=== PATIENT | female | born 1960 | race Caucasian/White ===

== ENCOUNTER 2018-03-29 14:55 | Emergency (ER) | payer MEDICAID ==
[~2018-03-29] VITALS: Ht 149.9 cm; Wt 59.4 kg
[2018-03-29 15:14] VITALS: BP 116/74
--- NOTE | 2018-03-29 16:14 | NUR ---
PT AMBULATES TO BED 1
--- NOTE | 2018-03-29 16:24 | NUR ---
PT PRESENTS TO THE ED WITH C/O LEFT ARM SWELLING AND REDNESS. PER PATIENT SHE RECEIVED VACCINATIONS 2 DAYS AGO IN [place]. PT UNABLE TO RECALL WHAT VACCINATIONS SHE RECEIVED. ERYTHEMA AND SWELLING NOTED ON THE LEFT ARM. NO DRAINANGE NOTED. PT REPORTS 2/10 PAIN. PT ALSO REPORTS PAIN ON HER LEFT BREAST. HX HYPOTHYROIDISMS, OSTEOPOROSIS, EPILEPSY
--- NOTE | 2018-03-29 17:01 | NUR ---
PATIENT EVALUATED BY DR PAGAN
[2018-03-29 17:43] VITALS: BP 116/73
--- NOTE | 2018-03-29 17:44 | NUR ---
Patient discharged with v/s stable. Written and verbal after care instructions given and explained. Patient alert, oriented and verbalized understanding of instructions. Ambulatory with steady gait. All questions addressed prior to discharge. ID band removed. Patient advised to follow up with PMD. Rx of BENADRYL given. Patient educated on indication of medication including possible reaction and side effects. Opportunity to ask questions provided and answered.
== END 2018-03-29 17:44 | disposition home or self-care (01) ==
LOC: MED 14:55
DX: T78.40XA Allergy, unspecified, initial encounter (principal); E03.9 Hypothyroidism, unspecified; X58.XXXA Exposure to other specified factors, initial encounter; Y93.89 Activity, other specified; Y92.89 Other specified places as the place of occurrence of the external cause; Y99.8 Other external cause status
CPT/HCPCS: 99283; Q0163

== ENCOUNTER 2021-07-17 17:44 | Emergency (ER) | payer OTHER, MEDICAID ==
[~2021-07-17] VITALS: Ht 146.1 cm; Wt 64.5 kg
[2021-07-17 17:52] VITALS: BP 120/76
--- NOTE | 2021-07-17 17:57 | NUR ---
PT AMB TO BED 9.
[2021-07-17] MEDS ORDERED: KETOROLAC 30 MG/ML VIAL IM ONE (18:10)
[2021-07-17 18:27] LABS: BASOPHILS # (AUTO) 0.1 K/uL (0.00-0.22); BASOPHILS % (AUTO) 0.9 % (0.0-2.0); EOSINOPHILS # (AUTO) 0.1 K/uL (0-0.4); EOSINOPHILS % (AUTO) 1.5 % (0.0-4.0); HEMATOCRIT 40.2 % (36-48); HEMOGLOBIN 13.5 g/dL (12.0-16.0); LYMPHOCYTES # (AUTO) 1.9 K/uL (2.5-16.5); LYMPHOCYTES % (AUTO) 34.6 % (20.5-51.1); MEAN CORPUSCULAR HEMOGLOBIN 32 pg (27-31); MEAN CORPUSCULAR HGB CONC 34 g/dL (33-37); MEAN CORPUSCULAR VOLUME 94.8 fL (80-94); MONOCYTES # (AUTO) 0.6 K/uL (0.8-1.0); MONOCYTES % (AUTO) 9.8 % (1.7-9.3); NEUTROPHILS % (AUTO) 53.2 % (42.2-75.2); PLATELET COUNT (AUTO) 272 K/uL (140-450); RED BLOOD CELL COUNT(AUTO) 4.24 MIL/uL (4.20-5.40); RED CELL DISTRIBUTION WIDTH 14.1 % (11.6-13.7); WHITE BLOOD COUNT (AUTO) 5.6 K/uL (4.8-10.8)
[2021-07-17 18:40] LABS: ALBUMIN 3.9 g/dL (3.4-5.0); ANION GAP 10.6 (8-16); CREATININE 0.7 mg/dL (0.6-1.3); POTASSIUM 3.6 mmol/L (3.5-5.1); TOTAL BILIRUBIN 0.4 mg/dL (0.0-1.0)
--- NOTE | 2021-07-17 19:06 | NUR ---
PT REFUSED PAIN MEDICATION AT THIS TIME.
[2021-07-17 19:19] LABS: LEUKOCYTE ESTERASE ,URINE 2+ (NEGATIVE); NITRITE, URINE NEGATIVE (NEGATIVE)
[2021-07-17 19:20] LABS: UGLUCOSE NEGATIVE (NEGATIVE)
[2021-07-17 19:21] LABS: BILIRUBIN,URINE NEGATIVE (NEGATIVE); BLOOD, URINE NEGATIVE (NEGATIVE); COLOR,URINE YELLOW (YELLOW)
[2021-07-17 19:22] LABS: APPEARANCE,URINE CLEAR (CLEAR)
[2021-07-17 19:36] LABS: RBC,URINE 0 /HPF (0-5)
--- NOTE | 2021-07-17 19:40 | NUR ---
RECEIVED IN BED 9 WITH C/O RUQ ABD PAIN X 2 DAYS. CONTINUES TO DENY NEED FOR PAIN MEDICATION PMH: THYROID, OSTEOPOROSIS
--- NOTE | 2021-07-17 20:36 | NUR ---
DR CHAVES AT BEDSIDE FOR REEXAM
[2021-07-17] MEDS ORDERED: CEPH-588 PO (22:24)
[2021-07-17] MEDS ORDERED: NAPR-54 PO (22:24)
[2021-07-17 23:31] VITALS: BP 118/77
--- NOTE | 2021-07-17 23:31 | NUR ---
Patient discharged with v/s stable. Written and verbal after care instructions given and explained for UTI. Patient alert, oriented and verbalized understanding of instructions. Ambulatory with steady gait. All questions addressed prior to discharge. ID band removed. Patient advised to follow up with PMD. Rx of Naproxen and Keflex given. Patient educated on indication of medication including possible reaction and side effects. Opportunity to ask questions provided and answered.
== END 2021-07-17 23:31 | disposition home or self-care (01) ==
LOC: MED 17:44
DX: R10.11 Right upper quadrant pain (principal); N39.0 Urinary tract infection, site not specified; E03.9 Hypothyroidism, unspecified; Z87.310 Personal history of (healed) osteoporosis fracture; Z98.890 Other specified postprocedural states
CPT/HCPCS: 36415; 74176; 76705; 80053; 81001; 83690; 85025; 87086; 99284; J1885; Q0092

== ENCOUNTER 2021-12-10 09:02 | Emergency (ER) | payer OTHER, MEDICAID ==
[~2021-12-10] VITALS: Ht 160 cm; Wt 70.3 kg
[~2021-12-10 09:02] MED LIST: CEPH-588 PO; NAPR-54 PO
[2021-12-10 09:14] VITALS: BP 130/89
--- NOTE | 2021-12-10 09:17 | NUR ---
Kassie mcqueen in [facility] - 12/10/21 at 0917 by CYNTHIA Patient ambulated to bed 6.
--- NOTE | 2021-12-10 09:18 | NUR ---
Patient ambulated to bed 5.
--- NOTE | 2021-12-10 09:39 | NUR ---
61 y/o female bib self with c/o left sided chest pain that radiates to back x 5 days. Pain is intermittent with a stabbing feeling. Patient states she took Ibuprofen last night and Tylenol today AM with minimal relief. Denies any nausea, vomiting or fevers. Denies any heavy lifting or sick contacts. Medical History: Osteoporosis, Thyroid NKDA
[2021-12-10] MEDS ORDERED: LIDOCAINE 5% 1 EA PATCH TP SCH (10:30)
[2021-12-10] MEDS ORDERED: KETOROLAC 15 MG/ML VIAL IM ONE (10:30)
--- NOTE | 2021-12-10 10:40 | NUR ---
X-ray at bedside.
--- NOTE | 2021-12-10 11:05 | NUR ---
Lab at bedside.
[2021-12-10 11:24] LABS: BASOPHILS % (AUTO) 1.2 % (0.0-2.0); EOSINOPHILS % (AUTO) 1.2 % (0.0-4.0); HEMATOCRIT 40.7 % (36-48); LYMPHOCYTES # (AUTO) 1.3 K/uL (2.5-16.5); LYMPHOCYTES % (AUTO) 38.9 % (20.5-51.1); MEAN CORPUSCULAR HEMOGLOBIN 33 pg (27-31); MEAN CORPUSCULAR HGB CONC 34 g/dL (33-37); MEAN CORPUSCULAR VOLUME 94.4 fL (80-94); MONOCYTES # (AUTO) 0.4 K/uL (0.8-1.0); MONOCYTES % (AUTO) 10.9 % (1.7-9.3); NEUTROPHILS # (AUTO) 1.6 K/uL (1.8-7.7); NEUTROPHILS % (AUTO) 47.8 % (42.2-75.2); PLATELET COUNT (AUTO) 244 K/uL (140-450); RED BLOOD CELL COUNT(AUTO) 4.31 MIL/uL (4.20-5.40); RED CELL DISTRIBUTION WIDTH 13.6 % (11.6-13.7); WHITE BLOOD COUNT (AUTO) 3.4 K/uL (4.8-10.8)
[2021-12-10 11:58] LABS: ALBUMIN 3.5 g/dL (3.4-5.0); ANION GAP 13.9 (8-16); ASPARTATE AMINOTRANSFERASE 19 U/L (15-37); CARBON DIOXIDE 24.2 mmol/L (21-32); CHLORIDE 106 mmol/L (98-107); CREATININE 0.5 mg/dL (0.6-1.3); GFR ARICAN-AMERICAN 161 mL/min (>90); GLUCOSE 90 mg/dL (74-106); POTASSIUM 4.1 mmol/L (3.5-5.1); SODIUM SERUM 140 mmol/L (136-145); TOTAL BILIRUBIN 0.5 mg/dL (0.0-1.0); UREA NITROGEN, BLOOD 10 mg/dL (7-18)
[2021-12-10] MEDS ORDERED: IBUP-1842 PO (12:14)
[2021-12-10 12:35] VITALS: BP 113/66
--- NOTE | 2021-12-10 12:35 | NUR ---
Patient discharged with v/s stable. Written and verbal after care instructions given. Patient alert, oriented and verbalized understanding of instructions. Ambulatory with steady gait. All questions addressed prior to discharge. ID band removed. Patient advised to follow up with PMD. Rx of Ibuprofen given. Opportunity to ask questions provided and answered.
--- NOTE | 2021-12-10 12:36 | NUR ---
The patient's care was reviewed and supervised by Sully Mead RN.
== END 2021-12-10 12:35 | disposition home or self-care (01) ==
LOC: MED 09:02
DX: N64.4 Mastodynia (principal); M25.512 Pain in left shoulder
CPT/HCPCS: 36415; 73030; 80053; 84484; 85025; 93005; 96372; 99285; J1885; Q0092

== ENCOUNTER 2021-12-13 08:39 | Emergency (ER) | payer OTHER, MEDICAID ==
[~2021-12-13] VITALS: Ht 152.4 cm; Wt 70.8 kg
[2021-12-13 08:39] VITALS: BP 125/80
[~2021-12-13 08:39] MED LIST changes: +IBUP-1842 PO
--- NOTE | 2021-12-13 08:50 | NUR ---
PT RECEIVED, CARE ASSUMED. PT PRESENTS SELF TO ER WITH C/O SUPERFICIAL, LEFT CHEST AND LEFT SCAPULA PAIN. NOTE RASH TO LEFT SIDE OF BACK AND CHEST. PT IN ROOM AWAITING TO BE SEEN BY
[2021-12-13] MEDS ORDERED: ACYCLOVIR 200 MG CAP PO ONE (09:20)
[2021-12-13] MEDS ORDERED: ACETAMINOPHEN EXTRA STRENGTH 500 MG TAB PO ONE (09:20)
[2021-12-13] MEDS ORDERED: predniSONE 20 MG TAB PO ONE (09:20)
[2021-12-13] MEDS ORDERED: GABAPENTIN 300 MG CAP PO ONE (09:20)
[2021-12-13] MEDS ORDERED: ACYC400T14 PO (09:21)
[2021-12-13] MEDS ORDERED: GABA300C PO (09:21)
[2021-12-13] MEDS ORDERED: PRED20TA5 PO (09:21)
[2021-12-13 09:31] VITALS: BP 132/75
== END 2021-12-13 09:31 | disposition home or self-care (01) ==
LOC: MED 08:39
DX: B02.9 Zoster without complications (principal); I10 Essential (primary) hypertension; E03.9 Hypothyroidism, unspecified; Z79.899 Other long term (current) drug therapy
CPT/HCPCS: 99284; J7512

== ENCOUNTER 2021-12-22 12:04 | Emergency (ER) | payer OTHER, MEDICAID ==
[~2021-12-22] VITALS: Ht 157.5 cm; Wt 65.8 kg
[~2021-12-22 12:04] MED LIST changes: +ACYC400T14 PO; +GABA300C PO; +PRED20TA5 PO
[2021-12-22 12:14] VITALS: BP 106/75
[2021-12-22] MEDS ORDERED: KETOROLAC 30 MG/ML VIAL IM ONE (13:15)
[2021-12-22] MEDS ORDERED: NAPR-1704 PO (13:22)
[2021-12-22] MEDS ORDERED: GABA300C PO (13:22)
== END 2021-12-22 13:25 | disposition home or self-care (01) ==
LOC: MED 12:04
DX: B02.9 Zoster without complications (principal); G62.9 Polyneuropathy, unspecified; M25.512 Pain in left shoulder; E07.9 Disorder of thyroid, unspecified; Z79.899 Other long term (current) drug therapy
CPT/HCPCS: 73030; 96372; 99283; J1885

== ENCOUNTER 2023-09-08 15:20 | Emergency (ER) | payer OTHER, MEDICAID ==
[~2023-09-08] VITALS: Ht 157.5 cm; Wt 64.9 kg
[~2023-09-08 15:20] MED LIST changes: +NAPR-1704 PO; +NAPR-337 PO; -NAPR-54 PO
[2023-09-08 15:46] VITALS: BP 117/75; PULSE 80; RESP 18; TEMP 97.8; O2SAT 98
[2023-09-08] MEDS: KETOROLAC 30 MG/ML VIAL IM ONE (16:13)
[2023-09-08] MEDS ORDERED: NAPR-337 PO (17:02)
[2023-09-08 17:31] VITALS: BP 117/75; PULSE 80; RESP 18; TEMP 97.8; O2SAT 98
== END 2023-09-08 17:35 | disposition home or self-care (01) ==
LOC: MED 15:20
DX: M25.461 Effusion, right knee (principal); E78.5 Hyperlipidemia, unspecified; M06.9 Rheumatoid arthritis, unspecified; Z86.39 Personal history of other endocrine, nutritional and metabolic disease; Z79.899 Other long term (current) drug therapy
CPT/HCPCS: 29505; 73562; 96372; 99283; J1885